=== PATIENT | male | born 1950 | race Caucasian/White ===

== ENCOUNTER 2020-03-23 05:29 | Inpatient (IN) | payer MEDICARE ==
[~2020-03-23] VITALS: Ht 188 cm; Wt 65.9 kg
[2020-03-23] MEDS ORDERED: TYLENOL #4 W/CO1 TAB PO (06:12)
[2020-03-23] MEDS ORDERED: HYDROCODON-ACE1 EA10 PO (06:13)
[2020-03-23] MEDS ORDERED: LISINOPRIL20 MG PO (06:15)
[2020-03-23] MEDS ORDERED: MOBIC7.5 MG PO (06:17)
[2020-03-23] MEDS ORDERED: NORVASC5 MG PO (07:35)
[2020-03-23] MEDS ORDERED: PROAIR HFA8.5 G1 INH (07:36)
[2020-03-23 07:51] LABS: HEMATOCRIT 34.9 % (42.0-54.0); MCH 33.4 pg (26.0-34.0); MCHC 37.2 g/dL (31.0-37.0); MCV 89.7 fL (80.0-100.0); MEAN PLATELET VOLUME 8.3 fL (7.4-10.4); PLATELET COUNT 384 10x3/uL (130-400); RBC 3.89 10x6/uL (4.20-6.10); RDW 11.6 % (11.5-14.5); WBC 9.1 10x3/uL (4.8-10.8)
[2020-03-23 08:05] LABS: ALBUMIN 3.2 g/dL (3.4-5.0); ALKALINE PHOSPHATASE 93 U/L (30-120); ALT (SGPT) 13 U/L (10-68); AMYLASE - SERUM 50 U/L (25-115); BILIRUBIN - TOTAL 0.62 mg/dL (0.2-1.3); CALCIUM 8.1 mg/dL (8.5-10.1); CARBON DIOXIDE 21.3 mmol/L (21.0-32.0); CHLORIDE - SERUM 87 mmol/L (98-107); CREATININE - SERUM 0.5 mg/dL (0.6-1.3); GLUCOSE 110 mg/dL (74-106); LIPASE 143 U/L (73-393); POTASSIUM - SERUM 3.9 mmol/L (3.5-5.1); PROTEIN - SERUM 6.9 g/dL (6.4-8.2); UREA NITROGEN 3 mg/dL (7-18); eGFR NON AFRICAN AMERICAN > 90 mL/min (90-120)
[2020-03-23 08:10] LABS: LYMPHOCYTES 17 % (15-50); MONOCYTES 3 % (2-11); NEUTROPHILS 79 % (40-80); PLATELET ESTIMATE NORMAL
[2020-03-23 08:14] LABS: CALC OSMOLALITY 235 mosm/kg (275-300); SODIUM 118 mmol/L (136-145); TROPONIN-I < 0.017 ng/mL (0.000-0.060)
[2020-03-23 09:35] VITALS: BP 140/82
[2020-03-23 09:39] LABS: BILIRUBIN NEGATIVE (NEGATIVE); KETONE MODERATE mg/dL (NEGATIVE); NITRITE NEGATIVE (NEGATIVE); UROBILINOGEN NORMAL mg/dL (< 2)
[2020-03-23 09:41] LABS: BACTERIA FEW HPF (NONE SEEN); WHITE CELLS - URINE 0-5 HPF (0-1)
--- NOTE | 2020-03-23 11:50 | NUR ---
ARRIVES TO UNIT PER W/C, NEW ORDERS NOTED
[2020-03-23 12:07] VITALS: BP 129/80; Ht 188 cm; Wt 65.9 kg
[2020-03-23 15:00] VITALS: BP 136/83
[2020-03-23 20:00] VITALS: BP 118/76
[2020-03-24] VITALS: BP 119/78
[2020-03-24 04:00] VITALS: BP 139/88
[2020-03-24 05:45] LABS: BASOPHILS 0.7 % (0-2); EOSINOPHILS 0.8 % (0-7); HEMATOCRIT 35.2 % (42.0-54.0); HEMOGLOBIN 12.5 g/dL (13.5-17.5); IMMATURE GRANULOCYTES 0.3 % (0-5); LYMPHOCYTES 22.6 % (15-50); MCH 32.7 pg (26.0-34.0); MCHC 35.5 g/dL (31.0-37.0); MEAN PLATELET VOLUME 8.5 fL (7.4-10.4); MONOCYTES 13.9 % (2-11); NEUTROPHILS 61.7 % (40-80); PLATELET COUNT 441 10x3/uL (130-400); RBC 3.82 10x6/uL (4.20-6.10); WBC 7.5 10x3/uL (4.8-10.8)
[2020-03-24 06:08] LABS: MCV 92.1 fL (80.0-100.0)
[2020-03-24 06:33] LABS: ALKALINE PHOSPHATASE 84 U/L (30-120); ALT (SGPT) 15 U/L (10-68); BILIRUBIN - TOTAL 0.67 mg/dL (0.2-1.3); CALC OSMOLALITY 249 mosm/kg (275-300); CALCIUM 8.1 mg/dL (8.5-10.1); CARBON DIOXIDE 20.3 mmol/L (21.0-32.0); CHLORIDE - SERUM 95 mmol/L (98-107); CREATININE - SERUM 0.6 mg/dL (0.6-1.3); GLUCOSE 104 mg/dL (74-106); MAGNESIUM - SERUM 1.7 mg/dL (1.8-2.4); PHOSPHOROUS 2.9 mg/dL (2.5-4.9); POTASSIUM - SERUM 3.7 mmol/L (3.5-5.1); PROTEIN - SERUM 6.5 g/dL (6.4-8.2); SODIUM 126 mmol/L (136-145); eGFR NON AFRICAN AMERICAN > 90 mL/min (90-120)
[2020-03-24 06:34] LABS: UREA NITROGEN 4 mg/dL (7-18)
[2020-03-24 08:13] VITALS: BP 129/71
--- NOTE | 2020-03-24 09:00 | NUR ---
ASSESSMENT PER FLOW SHEET. PATIENT IS WITHOUT DISTRESS. COMPLAINS OF BACK PAIN FROM BED.ENCOURAGED PATIENT TO AMBULATE. ALSO OFFERED CHAIR FOR PATIENT TO SIT IN,HE DECLINED CHAIR.
[2020-03-24 12:04] VITALS: BP 143/86
[2020-03-24] MEDS ORDERED: NICODERM CQ1 EAC3 TRANSDERM (12:26)
[2020-03-24] MEDS ORDERED: MULTI-DAY VITAM1 TAB PO (12:27)
[2020-03-24] MEDS ORDERED: FOLIC ACID1 MG PO (12:27)
--- NOTE | 2020-03-24 14:17 | MORECARE ---
CASE MANAGEMENT DISCHARGE SUMMARY PATIENT: ROBERTO VENCES UNIT: [id number] ADM DATE: 03/23/20 AGE: 69 : 50 SEX: M ROOM/BED: D.2210 AUTHOR: MIGUEL ANGEL VALENCIA PHYSICIAN: REFERRING PHYSICIAN: KIMBERLY REYEZ MD DATE OF SERVICE: 03/24/20 Discharge Plan Patient Name: ROBERTO VENCES Facility: [facility]:[place] : 1950 Planned Disposition: Home Anticipated Discharge Date: Discharge Date: Expected LOS: Initial Reviewer: [email or web address] Initial Review Date: 03/23/2020 Generated: 03/24/20 3:17 pm Patient Name: ROBERTO VENCES Page [id number] at 1417 All edits/amendments must be made on the electronic document DICTATION DATE: 03/24/20 1417 MANAGER STERILE: CHRISTINA 03/24/20 1417 RPT#: [id number] DC DATE: STATUS: ADM IN [facility] [address] [place] [address] END OF REPORT
--- NOTE | 2020-03-24 14:28 | MORECARE ---
CASE MANAGEMENT DISCHARGE SUMMARY PATIENT: ROBERTO VENCES UNIT: [id number] ADM DATE: 03/23/20 AGE: 69 : 50 SEX: M ROOM/BED: D.2210 AUTHOR: ERIKDOC PHYSICIAN: REFERRING PHYSICIAN: KIMBERLY REYEZ MD DATE OF SERVICE: 03/24/20 Discharge Plan Patient Name: ROBERTO VENCES Facility: [facility]:[place] : 1950 Planned Disposition: Home Anticipated Discharge Date: Discharge Date: Expected LOS: Initial Reviewer: [email or web address] Initial Review Date: 03/23/2020 Generated: 03/24/20 3:28 pm Comments DCP- Discharge Planning Updated by [email or web address]: Sunitha Rebolledo on 03/24/20 1:[address] Patient Name: ROBERTO VENCES Admission Status: ER Accout number: [id number] Admission Date: 03-23-2020 : 1950 Admission Diagnosis:UNSPECIFIED ABDOMINAL PAIN Attending: DEREJE, Current LOS: 1 Anticipated DC Date: Planned Disposition: Home Primary Insurance: [facility] MED[employer] Discharge Planning Comments: CM met with patient to complete initial dc planning assessment. CM educated patient on the CM role and verbal consent given by patient to complete assessment. Patient lives at home with his with where he is independent with his care. At discharge patient plans to return home and feels this is a safe discharge. CM discussed availability of home health, rehab services, and medical equipment. Dipak will be his cdl driver home today. Patient denied known discharge needs at this time. CM will continue to follow and will assist as needed with dc plans/needs. Ict Account Manager: Sunitha Rebolledo DCPIA - Discharge Planning Initial Assessment Updated by [email or web address]: Sunitha Rebolledo on 03/24/20 2:24 pm * Is the patient Alert and Oriented? Yes * How many steps to enter\exit or inside your home? * PCP DR RONDA ROYAL * [facility]acy [facility] * Preadmission Environment Home with Family * ADLs Independent * Equipment None * List name and contact numbers for known caregivers / representatives who currently or will assist patient after discharge: DIPAK GALVAN [phone] * Verbal permission to speak to the caregivers and representatives has been obtained from the patient. N/A * Community resources currently utilized None * Additional services required to return to the preadmission environment? No * Can the patient safely return to the preadmission environment? Yes * Has this patient been hospitalized within the prior 30 days at any hospital? No Last DP export: 03/24/20 1:17 p Patient Name: ROBERTO VENCES Page [id number] at 1428 All edits/amendments must be made on the electronic document DICTATION DATE: 03/24/201427 SERVICE DESK ANALYST: CHRISTINA 03/24/201427 RPT#: [id number] DC DATE: STATUS: ADM IN [facility] [address] [place] [address] END OF REPORT
--- NOTE | 2020-03-24 15:33 | NUR ---
IV DCD WITH CATH TIP INTACT. DISCHARGE INSTRUCTIONS,STATES UNDERSTANDING.LEFT UNIT VIA WHEELCHAIR FOR TRANSPORT HOME
== END 2020-03-24 15:33 | disposition home or self-care (01) | DRG 641 ==
LOC: D.ER 05:29 → D.MS 11:35
PROVIDERS: Family Medicine; ADMIT Family Medicine; ATTEND Family Medicine
DX: E87.1 Hypo-osmolality and hyponatremia (principal); R10.9 Unspecified abdominal pain; I10 Essential (primary) hypertension; F10.20 Alcohol dependence, uncomplicated